=== PATIENT | male | born 1960 | race Caucasian/White ===

== ENCOUNTER 2018-02-02 21:36 | Emergency (ER) | payer BC, OTHER ==
--- NOTE | 2018-02-02 22:00 | EDM.PDOC ---
ED HPI GENERAL MEDICAL PROBLEM - General Chief Complaint: Upper Extremity Injury/Pain Stated Complaint: ELBOW PAIN [id number] Time Seen by Provider: 02/02/18 21:50 Source of Information: Reports: Patient History Limitations: Reports: No Limitations - History of Present Illness INITIAL COMMENTS - FREE TEXT/NARRATIVE: This 57 yo male patient reports to the ED with swelling of his left elbow. The patient reports he noticed the swelling in the left elbow while he was at dinner this evening. The patient reports he was plugging in a new range yesterday when he may have injured his elbow. The patient reports no pain in the area at this time. Onset: Today Duration: Constant, Getting Worse Location: Reports: Upper Extremity, Left (elbow) Quality: Reports: Dull, Pressure Severity: Mild Improves with: Reports: None Worsens with: Reports: None Associated Symptoms: Reports: No Other Symptoms Left Elbow Pain Score (Numeric/FACES): 2 - Related Data Allergies Allergy/AdvReac Type Severity Reaction Status Date / Time No Known Allergies Allergy Verified 02/02/18 21:41 Home Meds: Home Meds Lisinopril 20 mg PO DAILY 02/02/18 [History] Rosuvastatin Calcium 20 mg PO DAILY 02/02/18 [History] metFORMIN HCl [Metformin HCl] 500 mg PO DAILY 02/02/18 [History] Past Medical History Cardiovascular History: Reports: High Cholesterol, Hypertension Endocrine/Metabolic History: Reports: Diabetes, Type II Social & Family History - Tobacco Use Smoking Status *Q: Never Smoker Second Hand Smoke Exposure: No - Recreational Drug Use Recreational Drug Use: No Review of Systems - Review of Systems Review Of Systems: ROS reveals no pertinent complaints other than HPI. ED EXAM, GENERAL - Physical Exam Exam: See Below Exam Limited By: No Limitations General Appearance: Alert, WD/WN, No Apparent Distress Eye Exam: Bilateral Eye: EOMI, Normal Inspection, PERRL Ears: Normal External Exam, Normal Canal, Hearing Grossly Normal, Normal TMs Nose: Normal Inspection, Normal Mucosa, No Blood Throat/Mouth: Normal Inspection, Normal Lips, Normal Teeth, Normal Gums, Normal Oropharynx, Normal Voice, No Airway Compromise Head: Atraumatic, Normocephalic Neck: Normal Inspection, Supple, Non-Tender, Full Range of Motion Respiratory/Chest: No Respiratory Distress, Lungs Clear, Normal Breath Sounds, No Accessory Muscle Use, Chest Non-Tender Cardiovascular: Normal Peripheral Pulses, Regular Rate, Rhythm, No Edema, No Gallop, No JVD, No Murmur, No Rub GI/Abdominal: Normal Bowel Sounds, Soft, Non-Tender, No Organomegaly, No Distention, No Abnormal Bruit, No Mass (Male) Exam: Deferred Rectal (Males) Exam: Deferred Back Exam: Normal Inspection, Full Range of Motion, NT Extremities: Arm Pain (left elbow swelling (bursitis)) Neurological: Alert, Oriented, CN II-XII Intact, Normal Cognition, Normal Gait, Normal Reflexes, No Motor/Sensory Deficits Psychiatric: Normal Affect, Normal Mood Skin Exam: Warm, Dry, Intact, Normal Color, No Rash Lymphatic: No Adenopathy Course - Vital Signs Last Recorded V/S: Last Vital Signs Temp 36.6 C 02/02/18 21:38 Pulse 66 02/02/18 21:38 Resp 18 02/02/18 21:38 BP 126/61 02/02/18 21:38 Pulse Ox 97 02/02/18 21:38 - Orders/Labs/Meds Orders: Active Orders 24 hr Category Date Time Status DME for Discharge [COMM] Urgent Oth 02/02/18 21:54 Ordered Departure - Departure Time of Disposition: 21:58 Disposition: Home, Self-Care 01 Condition: Fair Clinical Impression: Olecranon bursitis, left elbow - Discharge Information Instructions: Elbow Bursitis, [id number] Care Plan Goals: The patient was advised of the examination results during the visit. The patient was given an JOE wrap for continued pressure to the area. The patient was encouraged to avoid direct pressure on that elbow for the next 1-2 weeks. If the patient has any additional symptoms or concerns, the patient should follow-up with his primary care facility or return to the emergency department. - My Orders Last 24 Hours: My Active Orders 02/02/18 21:54 DME for Discharge [COMM] Urgent - Assessment/Plan Last 24 Hours: My Active Orders 02/02/18 21:54 DME for Discharge [COMM] Urgent
== END 2018-02-02 22:05 | disposition home or self-care (01) ==
LOC: DL.ED 21:36
DX: M70.22 Olecranon bursitis, left elbow (principal); E78.00 Pure hypercholesterolemia, unspecified; I10 Essential (primary) hypertension; E11.9 Type 2 diabetes mellitus without complications; Z79.84 Long term (current) use of oral hypoglycemic drugs; Z79.899 Other long term (current) drug therapy
CPT/HCPCS: 99283

== ENCOUNTER 2021-02-03 12:43 | Emergency (ER) | payer OTHER ==
[2021-02-03] MEDS ORDERED: Oxymetazoline 0.05% Nasal Spray 30 ML Bottle NAS ONE (12:58)
[2021-02-03] MEDS ORDERED: Lidocaine 1% with EPINEPHrine 1:100,000 20 ML MDV INJECT ONE (12:58)
--- NOTE | 2021-02-03 13:08 | EDM.PDOC ---
ED HPI GENERAL MEDICAL PROBLEM - General Chief Complaint: ENT Problem Stated Complaint: RANDOM NOSE BLEED SINCE 830 TAKES MEDS Time Seen by Provider: 02/03/21 13:06 Source of Information: Reports: Patient, Old Records, RN, RN Notes Reviewed History Limitations: Reports: No Limitations - History of Present Illness INITIAL COMMENTS - FREE TEXT/NARRATIVE: Pt presents to ER with c/o recurrent left sided nose bleeding since 0830HRS this morning. Pt denies injury or blood thinners. He does take a baby aspirin daily. Hx of HTN, and did not take his medication today. Onset: Today Duration: Intermittent, Recurring Location: Reports: Other (Nose) Quality: Reports: Other (Denies pain) Severity: Moderate Improves with: Reports: None Worsens with: Reports: None Associated Symptoms: Reports: No Other Symptoms - Related Data Allergies Allergy/AdvReac Type Severity Reaction Status Date / Time No Known Allergies Allergy Verified 02/03/21 13:00 Home Meds: Home Meds Lisinopril 20 mg PO DAILY 02/02/18 [History] Rosuvastatin Calcium 20 mg PO DAILY 02/02/18 [History] metFORMIN HCl [Metformin HCl] 500 mg PO DAILY 02/02/18 [History] Aspirin [Halfprin] 81 mg PO DAILY 02/03/21 [History] Past Medical History Cardiovascular History: Reports: High Cholesterol, Hypertension Endocrine/Metabolic History: Reports: Diabetes, Type II Social & Family History - Living Situation & Occupation Living situation: Reports: , with Spouse ED ROS ENT - Review of Systems Review Of Systems: Comprehensive ROS is negative, except as noted in HPI. ED EXAM, ENT - Physical Exam Exam: See Below Exam Limited By: No Limitations General Appearance: Alert, No Apparent Distress Eye Exam: Bilateral Eye: Normal Inspection Ears: Normal External Exam Nose: Active Bleeding (Left nare, no visible anterior septal bleeding) Mouth/Throat: Normal Inspection Head: Atraumatic, Normocephalic Neck: Normal Inspection Respiratory/Chest: No Respiratory Distress Cardiovascular: Regular Rate, Rhythm Neurological: Alert, Oriented, CN II-XII Intact, Normal Cognition, No Motor/Sensory Deficits Psychiatric: Normal Mood Skin: Warm, Dry, Intact, Normal Color, No Rash ED ENT PROCEDURES - Epistaxis Procedure Indication: Epistaxis, Uncontrolled Recent anticoagulants/antiplatlets: Yes Uncontrolled HTN: No Site of bleeding: Left Nare, Posterior Clearing of clots: Suction Topical Meds: Other (Afrin with Lidocaine 1% with EPI) Ice pack to area: No Anterior Packing: Inflatable Nasal Tampon Posterior packing: Long Inflatable Nasal Tampon Local Anesthetic Volume: 2cc Complications: No Course - Vital Signs Last Recorded V/S: Last Vital Signs Temp 97.2 F 02/03/21 13:05 Pulse 80 02/03/21 13:05 Resp 20 02/03/21 13:05 BP 147/75 H 02/03/21 13:05 Pulse Ox 97 02/03/21 13:05 - Orders/Labs/Meds Meds: Medications Discontinued Medications Generic Name Dose Route Start Last Admin Trade Name Moq PRN Reason Stop Dose Admin Lidocaine/Epinephrine 20 ml 02/03/21 12:58 02/03/21 13:11 Lidocaine 1% With Epinephrine 1:100,000 20 Ml Mdv INJECT 02/03/21 12:59 20 ml ONETIME ONE Administration Oxymetazoline HCl 15 ml 02/03/21 12:58 02/03/21 13:11 Oxymetazoline 0.05% Nasal [place] 30 Ml Bottle JULIANNE 02/03/21 12:59 2 spray ONETIME ONE Administration Tranexamic Acid 500 mg 02/03/21 13:15 02/03/21 13:27 Tranexamic Acid 1,000 Mg/10 Ml Amp TOP 02/03/21 13:16 500 mg ONETIME ONE Administration Departure - Departure Time of Disposition: 14:14 Disposition: Home, Self-Care 01 Condition: Good Clinical Impression: Epistaxis - Discharge Information *PRESCRIPTION DRUG MONITORING PROGRAM REVIEWED*: Not Applicable *COPY OF PRESCRIPTION DRUG MONITORING REPORT IN PATIENT BONNY: Not Applicable Instructions: Nosebleed, Adult Forms: ED Department Discharge Additional Instructions: Rx: Augmentin 875mg Follow up in clinic Saturday for removal of nasal packing, and for referral to Ear/Nose/Throat specialist. If the packing falls out on its own, do not wipe, blow, or rub your nose. Sepsis Event Note (ED) - Focused Exam Vital Signs: Vital Signs Temp Pulse Resp BP Pulse Ox 02/03/21 13:05 97.2 F 80 20 147/75 H 97
== END 2021-02-03 14:20 | disposition home or self-care (01) ==
LOC: DL.ED 12:43
DX: R04.0 Epistaxis (principal); I10 Essential (primary) hypertension; E78.00 Pure hypercholesterolemia, unspecified; E11.9 Type 2 diabetes mellitus without complications; Z79.899 Other long term (current) drug therapy; Z79.82 Long term (current) use of aspirin; Z79.84 Long term (current) use of oral hypoglycemic drugs
CPT/HCPCS: 30905; 99283; A9270

== ENCOUNTER 2021-03-13 23:24 | Emergency (ER) | payer OTHER ==
[2021-03-14] MEDS ORDERED: Phenylephrine 0.5% Nasal Spray 15 ML Bot NASBOTH ONE (00:30)
[2021-03-14 01:11] LABS: ANION GAP 15.2 mEq/L (7-13); CHLORIDE,CL 102 mmol/L (98-107); SODIUM,NA 141 mmol/L (136-145)
--- NOTE | 2021-03-14 01:11 | EDM.PDOC ---
ED HPI GENERAL MEDICAL PROBLEM - General Chief Complaint: ENT Problem Stated Complaint: BLOODY NOSE, HAS A PLUG ALREADY Time Seen by Provider: 03/14/21 00:30 Source of Information: Reports: Patient, Family History Limitations: Reports: No Limitations - History of Present Illness INITIAL COMMENTS - FREE TEXT/NARRATIVE: ED with c/o recurrent nose bleed from left side of nose. Was seen earlier on Saturday at urgent care in [place] and packing placed. Reports about every 4 hours nose starts bleeding again. Prio cautery couple months prior by ENT in [place]> Not on blood thinner except ASA 3 times weekly. - Related Data Allergies Allergy/AdvReac Type Severity Reaction Status Date / Time No Known Allergies Allergy Verified 03/14/21 00:25 Home Meds: Home Meds Lisinopril 20 mg PO DAILY 02/02/18 [History] Rosuvastatin Calcium 20 mg PO DAILY 02/02/18 [History] metFORMIN HCl [Metformin HCl] 500 mg PO DAILY 02/02/18 [History] Aspirin [Halfprin] 81 mg PO DAILY 02/03/21 [History] Cefdinir [Omnicef] 300 mg PO BID 03/14/21 [History] Past Medical History HEENT History: Reports: Epistaxis Cardiovascular History: Reports: High Cholesterol, Hypertension Endocrine/Metabolic History: Reports: Diabetes, Type II Social & Family History - Tobacco Use Tobacco Use Status *Q: Never Tobacco User Second Hand Smoke Exposure: No - Caffeine Use Caffeine Use: Reports: Tea - Recreational Drug Use Recreational Drug Use: No - Living Situation & Occupation Living situation: Reports: , with Spouse ED ROS ENT - Review of Systems Review Of Systems: Comprehensive ROS is negative, except as noted in HPI. ED EXAM, ENT - Physical Exam Exam: See Below Exam Limited By: No Limitations General Appearance: Alert, No Apparent Distress Eye Exam: Bilateral Eye: EOMI Ears: Normal External Exam, Hearing Grossly Normal Nose: Dried Blood, Other (nasal packing left nare) Mouth/Throat: Normal Inspection Head: Atraumatic, Normocephalic Neck: Normal Inspection Respiratory/Chest: No Respiratory Distress, Lungs Clear Cardiovascular: Regular Rate, Rhythm GI/Abdominal: Soft Back: Normal Inspection Extremities: Normal Inspection Neurological: Alert, Oriented Psychiatric: Normal Affect Skin: Warm, Dry, Intact, Normal Color Course - Vital Signs Last Recorded V/S: Last Vital Signs Temp 97.9 F 03/14/21 00:19 Pulse 89 03/14/21 00:19 Resp 18 03/14/21 00:19 BP 134/74 03/14/21 00:19 Pulse Ox 98 03/14/21 00:19 - Orders/Labs/Meds Labs: Laboratory Tests 03/14/21 03/14/21 Range/Units 00:47 00:47 WBC 4.9 L (5.0-10.0) 10^3/uL RBC 3.96 L (4.6-6.2) 10^6/uL Hgb 11.8 L (14.0-18.0) g/dL Hct 35.8 L (40.0-54.0) % MCV 90.4 (80-100) fL MCH 29.8 (27.0-34.0) pg MCHC 33.0 (33.0-35.0) g/dL Plt Count 204 (150-450) 10^3/uL Neut % (Auto) 33.4 L (42.2-75.2) % Lymph % (Auto) 53.2 H (20.5-50.1) % [place] % (Auto) 6.2 (2-8) % Eos % (Auto) 4.1 H (1.0-3.0) % Baso % (Auto) 3.1 H (0.0-1.0) % Sodium 141 (136-145) mmol/L Potassium 4.2 (3.5-5.1) mmol/L Chloride 102 (98-107) mmol/L Carbon Dioxide 28 (21-32) mmol/L Anion Gap 15.2 H (7-13) mEq/L BUN 17 (7-18) mg/dL Creatinine 0.88 (0.70-1.30) mg/dL Est Cr Clr Drug Dosing 81.37 mL/min Estimated GFR (MDRD) > 60 BUN/Creatinine Ratio 19.3 (No establ ref range) Glucose 136 H (70-99) mg/dL Calcium 9.0 (8.5-10.1) mg/dL Total Bilirubin 0.8 (0.2-1.0) mg/dL AST 14 L (15-37) U/L ALT 29 (16-63) U/L Alkaline Phosphatase 88 (46-116) U/L Total Protein 7.3 (6.4-8.2) g/dL Albumin 4.3 (3.4-5.0) g/dL Globulin 3.0 Albumin/Globulin Ratio 1.4 Meds: Medications Discontinued Medications Generic Name Dose Route Start Last Admin Trade Name Moq PRN Reason Stop Dose Admin Phenylephrine HCl 1 ml 03/14/21 00:30 Phenylephrine 0.5% Nasal [place] 15 Ml Bot NASBOTH 03/14/21 00:31 ONETIME ONE Departure - Departure Time of Disposition: 01:08 Disposition: Home, Self-Care 01 Condition: Good Clinical Impression: Epistaxis - Discharge Information *PRESCRIPTION DRUG MONITORING PROGRAM REVIEWED*: No *COPY OF PRESCRIPTION DRUG MONITORING REPORT IN PATIENT BONNY: No Instructions: Nosebleed, [id number] Referrals: Gary Dhillon NP [Primary Care Provider] - Forms: ED Department Discharge Additional Instructions: humidifier follow up with ENT [place] follow up if bleeding does not stop with 15minute pressure to nose Sepsis Event Note (ED) - Evaluation Sepsis Screening Result: No Definite Risk
== END 2021-03-14 01:32 | disposition home or self-care (01) ==
LOC: DL.ED 23:24
DX: R04.0 Epistaxis (principal); E78.00 Pure hypercholesterolemia, unspecified; I10 Essential (primary) hypertension; E11.9 Type 2 diabetes mellitus without complications; Z79.82 Long term (current) use of aspirin; Z79.84 Long term (current) use of oral hypoglycemic drugs; Z79.899 Other long term (current) drug therapy
CPT/HCPCS: 36415; 80053; 85025; 99282; 99283

== ENCOUNTER 2022-06-16 10:42 | Emergency (ER) | payer OTHER ==
[2022-06-16 11:40] LABS: ANION GAP 11.3 mEq/L (7-13)
== END 2022-06-16 14:06 | disposition home or self-care (01) ==
LOC: DL.ED 10:42
DX: R25.2 Cramp and spasm (principal); D63.0 Anemia in neoplastic disease; E78.00 Pure hypercholesterolemia, unspecified; I10 Essential (primary) hypertension; E11.9 Type 2 diabetes mellitus without complications; Z79.84 Long term (current) use of oral hypoglycemic drugs; Z79.82 Long term (current) use of aspirin; Z79.899 Other long term (current) drug therapy
CPT/HCPCS: 36415; 80053; 83605; 85025; 85379; 86850; 86900; 86901; 93971; 99284

== ENCOUNTER 2022-08-17 07:18 | Emergency (ER) | payer OTHER ==
[2022-09-10 15:13] LABS: ANION GAP 12.1 mEq/L (7-13); CHLORIDE,CL 103 mmol/L (98-107); SODIUM,NA 140 mmol/L (136-145)
[2022-09-10 15:14] LABS: ESTIMATED GFR 102 mL/min (>=60); PTT,PARTIAL THROMBOPLSTIN TIME 27.7 SEC (22.0-34.0)
== END 2022-08-17 08:45 | disposition home or self-care (01) ==
LOC: DL.ED 07:18
DX: R04.0 Epistaxis (principal)
CPT/HCPCS: 30901; 36415; 80053; 85025; 85610; 85730; 86850; 86900; 86901; 99283

== ENCOUNTER 2023-12-09 05:44 | Day surgery (SDC) | payer OTHER ==
[2023-12-09] MEDS ORDERED: fentaNYL 100 MCG/2 ML SDV IV ONE (05:45)
[2023-12-09] MEDS ORDERED: Midazolam 1 MG/ML 2 ML SDV IV ONE (05:45)
[2023-12-09] MEDS ORDERED: Midazolam 1 MG/ML 2 ML SDV ONE (06:09)
[2023-12-09] MEDS ORDERED: fentaNYL 100 MCG/2 ML SDV ONE (06:09)
[2023-12-09] MEDS: Dextrose 5%-0.45% NaCl 1,000 ML IV SCH (06:15)
[2023-12-09] MEDS: fentaNYL 100 MCG/2 ML SDV IV ONE ×2 (07:04→07:05)
[2023-12-09] MEDS: Midazolam 1 MG/ML 2 ML SDV IV ONE ×6 (07:05→07:22)
== END 2023-12-09 09:30 | disposition home or self-care (01) ==
LOC: DL.ENDO 05:44
PROVIDERS: ATTEND Internal Medicine Gastroenterology
DX: Z12.11 Encounter for screening for malignant neoplasm of colon (principal); D12.3 Benign neoplasm of transverse colon; D12.2 Benign neoplasm of ascending colon; I10 Essential (primary) hypertension; E11.9 Type 2 diabetes mellitus without complications; E78.5 Hyperlipidemia, unspecified; Z86.16 Personal history of COVID-19; E66.09 Other obesity due to excess calories; Z68.34 Body mass index [BMI] 34.0-34.9, adult; Z98.890 Other specified postprocedural states; Z79.899 Other long term (current) drug therapy
CPT/HCPCS: 45385; J2250; J3010; J7042